=== PATIENT | female | born 1990 | race Caucasian/White ===

== ENCOUNTER 2017-01-03 14:59 | Emergency (ER) | payer OTHER ==
[~2017-01-03] VITALS: Ht 160 cm; Wt 69.0 kg
[~2017-01-03 14:59] MED LIST: CPRHC10OT BOTH EARS; DOXY100T2 PO; HC1C30 TOP; HYDR-3498 PO; HYDR200T5 PO; IBUP800T25 PO; MULT-552 PO; MYCO200S PO; PRED20TA PO; PRED5 PO
[2017-01-03 15:05] VITALS: Ht 160 cm; Wt 69.0 kg
--- NOTE | 2017-01-03 16:06 | ERD ---
ER Documentation Chief Complaint Date/Time DATE: 01/03/17 TIME: 15:51 Chief Complaint rash on body x 1 week ROS All systems reviewed and are negative except as per history of present illness. Medications Home Meds Active Scripts Prednisone* (Prednisone*) 20 Mg Tab, 20 MG PO DAILY for 14 Days, TAB Prov:ROMMEL CALVERT MD 12/01/15 Hydroxychloroquine Sulfate* (Plaquenil*) 200 Mg Tab, 400 MG PO DAILY for 14 Days , TAB Prov:ROMMEL CALVERT MD 12/01/15 Mycophenolate Mofetil* (Cellcept*) 200 Mg/Ml Susp.recon, 1000 MG PO BID for 14 Days, ML Prov:ROMMEL CALVERT MD 12/01/15 Hydrocortisone* Topical (Hydrocortisone* Topical) 1%-28.35 Gm Cream..g., 1 APPLIC TOP Q6 Y for ITCHING, #1 TUB Prov:YE BECERRIL NP 09/15/15 Ibuprofen* (Motrin*) 800 Mg Tab, 800 MG PO Q6, #30 TAB Prov:YE BECERRIL NP 09/15/15 Hydrocodone Bit-Acetaminophen* ([place]*) 5-325 Mg Tab, 1 TAB PO Q6 Y for PAIN, # 10 TAB Prov:YE BECERRIL NP 09/15/15 Prednisone* (Prednisone*) 5 Mg Tab, 10 MG PO DAILY for 7 Days, TAB Prov:TRICE LAM MD 06/24/15 Doxycycline* (Vibramycin*) 100 Mg Tab, 100 MG PO BID for 7 Days, TAB Prov:TRICE LAM MD 06/24/15 Ciprofloxacin/Hydrocortisone* (Cipro* HC Otic) 1 Drop Drops, 3 DROP BOTH EARS BID for 10 Days, BOTTLE Prov:TRICE LAM MD 06/24/15 Reported Medications Multivitamins* (Once Daily*) 1 Tab Tablet, 1 TAB PO DAILY, TAB 06/21/15 Allergies Allergies: Coded Allergies: rituximab (Verified Allergy, Severe, ANAPHYLACTIC SHOCK, 01/03/17) piperacillin (Verified Allergy, Unknown, THROAT CLOSES, 01/03/17) tazobactam (Verified Allergy, Unknown, 01/03/17) PMhx/Soc History of Surgery: Yes (RIGHT OVARIAN CYST REMOVED CHOLECYSTECTOMY) Anesthesia Reaction: No Hx Neurological Disorder: No Hx Respiratory Disorders: Yes (BRONCHITIS) Hx Cardiac Disorders: No Hx Psychiatric Problems: Yes (BIPOLAR) Hx Miscellaneous Medical Probl: Yes (LUPUS, RA) Hx Alcohol Use: No Hx Substance Use: No Hx Tobacco Use: No Physical Exam Vitals Vital Signs Date Time Temp Pulse Resp B/P Pulse Ox O2 Delivery O2 Flow Rate FiO2 01/03/17 15:05 98.7 98 18 134/89 100 Physical Exam Const: [] Head: Atraumatic Eyes: Normal Conjunctiva ENT: Normal External Ears, Nose and Mouth. Neck: Full range of motion..~ No meningismus. Resp: Clear to auscultation bilaterally Cardio: Regular rate and rhythm, no murmurs Abd: Soft, non tender, non distended. Normal bowel sounds Skin: No petechiae or rashes Back: No midline or flank tenderness Ext: No cyanosis, or edema Neur: Awake and alert Psych: Normal Mood and Affect RAJAN TOMPKINS Jan 03, 2017 16:06
[2017-01-03] MEDS ORDERED: METHYLPREDNISOLONE 125 MG INJ IV ONE (16:30)
[2017-01-03 16:38] LABS: ADD SCAN DIFF NO
[2017-01-03 16:41] LABS: ABNORMAL IP MESSAGE 1; HEMATOCRIT 27.3 % (37.0-47.0); HEMOGLOBIN 8.6 g/dl (12.0-16.0); MEAN CORPUSCULAR HEMOGLOBIN 25.1 pg (29.0-33.0); MEAN CORPUSCULAR HGB CONC 31.5 g/dl (32.0-37.0); MEAN CORPUSCULAR VOLUME 79.8 fl (82.0-101.0); PLATELET COUNT 245 10^3/UL (140-415); RED BLOOD COUNT 3.42 10^6/ul (4.20-5.40); RED CELL DISTRIBUTION WIDTH 18.4 % (11.5-14.5); WHITE BLOOD COUNT 14.8 10^3/ul (4.8-10.8)
[2017-01-03 16:55] LABS: INR 0.95; PARTIAL THROMBOPLASTIN TIME 23.9 Sec (25.0-35.0); PROTIME 12.7 Sec (12.2-14.2)
[2017-01-03 17:00] LABS: ALANINE AMINOTRANSFERASE 48 IU/L (13-69); ALBUMIN 2.9 g/dl (3.3-4.9); ALBUMIN/GLOBULIN RATIO 1.26; ALKALINE PHOSPHATASE 102 IU/L (42-121); ANION GAP 14 (8-16); ASPARTATE AMINO TRANSFERASE 33 IU/L (15-46); BLOOD UREA NITROGEN 19 mg/dl (7-20); CALCIUM 8.6 mg/dl (8.4-10.2); CARBON DIOXIDE 25 mmol/L (21-31); CHLORIDE 104 mmol/L (97-110); CREATININE 0.66 mg/dl (0.44-1.00); GLUCOSE 89 mg/dl (70-220); POTASSIUM 3.4 mmol/L (3.5-5.1); SODIUM 140 mmol/L (135-144); TOTAL PROTEIN 5.2 g/dl (6.1-8.1)
[2017-01-03 17:11] LABS: CK-MB 0.38 ng/ml (0.0-2.4)
[2017-01-03 17:23] LABS: CREATINE KINASE < 20 IU/L (23-200); TROPONIN-I < 0.012 ng/ml (0.00-0.12)
[2017-01-03 17:28] LABS: EOSINOPHILS # 0.1 10^3/ul (0.0-0.5); LYMPHOCYTES # 3.1 10^3/ul (0.8-2.9); MONOCYTE # 1.2 10^3/ul (0.3-0.9); NEUTROPHIL # 10.4 10^3/ul (1.6-7.5)
[2017-01-03 17:32] LABS: ANISOCYTOSIS 1+; MICROCYTOSIS 1+
[2017-01-03] MEDS ORDERED: MED4DP PO (17:50)
[2017-01-03] MEDS ORDERED: ONDANSETRON (ODT) 4 MG TAB ODT STA (17:51)
[2017-01-03] MEDS ORDERED: morphine 10 MG INJ IM ONE (18:00)
[2017-01-03] MEDS ORDERED: PRED20TA PO (18:13)
[2017-01-03] MEDS ORDERED: WARF4TAB52 PO (18:14)
[2017-01-03] MEDS ORDERED: ASPI-664 PO (18:15)
[2017-01-03 18:21] VITALS: BP 139/91; PULSE 85; RESP 16; TEMP 98.6
== END 2017-01-03 18:23 | disposition home or self-care (01) ==
LOC: FTE 14:59
DX: R21 Rash and other nonspecific skin eruption (principal); R07.9 Chest pain, unspecified
CPT/HCPCS: 80053; 82550; 82553; 84484; 84703; 85025; 85610; 85730; 96372; 96374; J2270; J2930; Z7502; Z7610; 93005

== ENCOUNTER 2017-02-03 14:06 | Emergency (ER) | payer OTHER ==
[~2017-02-03] VITALS: Ht 160 cm; Wt 68.5 kg
[~2017-02-03 14:06] MED LIST changes: +ASPI-664 PO; -CPRHC10OT BOTH EARS; -DOXY100T2 PO; -HC1C30 TOP; -HYDR-3498 PO; -IBUP800T25 PO; +MED4DP PO; -MULT-552 PO; -MYCO200S PO; -PRED5 PO; +WARF4TAB52 PO
[2017-02-03 14:09] VITALS: Ht 160 cm; Wt 68.5 kg
--- NOTE | 2017-02-03 14:23 | ERA ---
ER Documentation Chief Complaint Date/Time DATE: 02/03/17 TIME: 14:23 Chief Complaint PT with rash, fatigue and body pain x 2 days, pt dx with lupus. HPI The patient is a 26-year-old female, presenting to the ER because of chronic body rash, worse for the last 4 days and chronic general body pain. She was seen in the ER on January 03, 2017 for similar symptoms. She is here in the ER with her boyfriend. She is not cooperative with history and physical and very agitated when questions are being asked. She and her boyfriend becomes extremely agitated when I asked the questions. She denies fever, chills, neck pain, chest pain, abdominal pain, vomiting, dysuria, diarrhea. The history is also obtained from medical record Past medical history: Systemic lupus erythematosus, rheumatoid arthritis, hypertension, bipolar Past surgical history: Cholecystectomy ROS All systems reviewed and are negative except as per history of present illness. Medications Home Meds Active Scripts Methylprednisolone* (Medrol* DOSE PACK) 4 Mg/Dose-Pack Tab.ds.pk, 4 MG PO . DIRECTED, #1 PACKET Prov:RAJAN TOMPKINS 01/03/17 Hydroxychloroquine Sulfate* (Plaquenil*) 200 Mg Tab, 400 MG PO DAILY for 14 Days , TAB Prov:ROMMEL CALVERT MD 12/01/15 Reported Medications Aspirin* (Aspirin* EC) 81 Mg Tablet.dr, 81 MG PO DAILY, TAB 01/03/17 Warfarin Sodium* (Warfarin Sodium*) 4 Mg Tablet, 4 MG PO DAILY, TAB 01/03/17 Prednisone* (Prednisone*) 20 Mg Tab, 40 MG PO BID, TAB 01/03/17 Allergies Allergies: Coded Allergies: rituximab (Verified Allergy, Severe, ANAPHYLACTIC SHOCK, 01/03/17) piperacillin (Verified Allergy, Unknown, THROAT CLOSES, 01/03/17) tazobactam (Verified Allergy, Unknown, 01/03/17) PMhx/Soc History of Surgery: Yes (RIGHT OVARIAN CYST REMOVED CHOLECYSTECTOMY) Anesthesia Reaction: No Hx Neurological Disorder: No Hx Respiratory Disorders: Yes (BRONCHITIS) Hx Cardiac Disorders: No Hx Psychiatric Problems: Yes (BIPOLAR) Hx Miscellaneous Medical Probl: Yes (LUPUS, RA) Hx Alcohol Use: No Hx Substance Use: No Hx Tobacco Use: No Physical Exam Vitals Vital Signs Date Time Temp Pulse Resp B/P Pulse Ox O2 Delivery O2 Flow Rate FiO2 02/03/17 14:09 98.5 119 18 111/75 100 Physical Exam Physical exam was not done because patient did not cooperate Procedures/MDM MEDICAL MAKING DECISION: The patient is a 26-year-old female, presenting with acute on chronic body rash and chronic general body pain. I have advised her to put on a gown inside the room so I can examine her properly. I have interviewed the pt with her nurse Di in the room. She declined and left the hospital ER AGAINST MEDICAL ADVICE. The patient signed out AGAINST MEDICAL ADVICE. Risks, benefits, alternatives were explained to the patient. Risks include but not limited to and permanent disability Departure Diagnosis: Primary Impression: Rash Condition: Stable GRACE PHELPS MD Feb 03, 2017 14:23
== END 2017-02-03 14:46 | disposition left against medical advice (07) ==
LOC: FTE 14:06
DX: R21 Rash and other nonspecific skin eruption (principal); I10 Essential (primary) hypertension; Z79.01 Long term (current) use of anticoagulants; Z79.82 Long term (current) use of aspirin
CPT/HCPCS: 99282